=== PATIENT | female | born 1960 | race Caucasian/White ===

== ENCOUNTER 2016-11-07 11:09 | Emergency (ER) | payer BC ==
[~2016-11-07 11:09] MED LIST: BENICAR HCT 20-1 TA1 PO; CIPRO500 MG PO; CRESTOR10 MG PO; CYCLOBENZAPRINE10 MG PO; DEMEROL50 MG PO; HYDROCODON-ACE1 EAC7 PO; HYZAAR 50-12.51 TAB PO; NEURONTIN 300300 MG PO; PRILOSEC20 MG PO; SYNTHROID125 MCG PO
== END 2016-11-07 13:09 | disposition home or self-care (01) ==
LOC: D.ER 11:09
DX: S61.412A Laceration without foreign body of left hand, initial encounter (principal); W45.8XXA Other foreign body or object entering through skin, initial encounter; Y93.89 Activity, other specified; Y92.89 Other specified places as the place of occurrence of the external cause; I10 Essential (primary) hypertension; E07.9 Disorder of thyroid, unspecified; S69.92XA Unspecified injury of left wrist, hand and finger(s), initial encounter

== ENCOUNTER → 2016-12-10 08:14 | Outpatient (CLI) | payer BC ==
[2016-05-29 10:51] VITALS: BMI 22.6
== END | disposition home or self-care (01) ==
LOC: D.RAD 08:14
DX: Z98.890 Other specified postprocedural states (principal)

== ENCOUNTER → 2017-03-28 08:25 | Outpatient (CLI) | payer BC ==
[2016-05-29 10:51] VITALS: BMI 22.6
== END | disposition home or self-care (01) ==
LOC: D.RAD 08:00
DX: M54.2 Cervicalgia (principal); M43.22 Fusion of spine, cervical region

== ENCOUNTER → 2018-11-22 12:28 | Outpatient (CLI) | payer MEDICAID ==
[2016-05-29 10:51] VITALS: BMI 22.6
== END | disposition home or self-care (01) ==
LOC: D.MRI 12:28
PROVIDERS: ATTEND Family Medicine
DX: M50.10 Cervical disc disorder with radiculopathy, unspecified cervical region (principal)

== ENCOUNTER 2019-12-05 17:20 | Emergency (ER) | payer MEDICAID ==
[~2019-12-05] VITALS: Ht 160 cm; Wt 61.4 kg
[2019-12-05 17:25] VITALS: Ht 160 cm; Wt 61.4 kg
[2019-12-05] MEDS ORDERED: LYRICA75 MG PO (17:31)
[2019-12-05] MEDS ORDERED: CELEBREX50 MG PO (17:32)
[2019-12-05 22:20] VITALS: BP 140/74
== END 2019-12-05 22:20 | disposition other institution (70) ==
LOC: D.ER 17:20
DX: S01.85XA Open bite of other part of head, initial encounter (principal); W54.0XXA Bitten by dog, initial encounter; Y93.9 Activity, unspecified; Y92.9 Unspecified place or not applicable; S01.511A Laceration without foreign body of lip, initial encounter; E07.9 Disorder of thyroid, unspecified; I10 Essential (primary) hypertension

== ENCOUNTER 2019-12-26 09:00 | Outpatient (CLI) | payer MEDICAID ==
[2019-12-05 17:25] VITALS: BMI 23.9
[~2019-12-26 09:00] MED LIST changes: +CELEBREX50 MG PO; +LYRICA75 MG PO
== END 2019-12-26 10:00 | disposition home or self-care (01) ==
LOC: D.MAMMO 09:00
PROVIDERS: ATTEND Nurse Practitioner Family
DX: Z12.31 Encounter for screening mammogram for malignant neoplasm of breast (principal)